=== PATIENT | male | born 1930 | race Caucasian/White ===

== ENCOUNTER 2017-05-28 14:28 | Emergency (ER) | payer OTHER ==
[~2017-05-28] VITALS: Wt 108.9 kg
[~2017-05-28 14:28] MED LIST: 'zithromax250 MG PO; ALDACTONE50 MG PO; AMLODIPINE BES1 TAB PO; AMLODIPINE BESY PO; AMLODIPINE10 MG PO; ARICEPT10 M1 PO; ARICEPT5 M1 PO; ASPIRIN ADULT L81 M2 PO; ATENOLOL25 MG PO; BAL B-501 EACH PO; BUSPAR5 MG PO; BUSPIRONE10 MG PO; COUMADIN5 MG PO; COZAAR100 MG PO; DELTASONE20 MG PO; DIABETA5 MG PO; DICLOFENAC SOD75 MG PO; DIOVAN160 MG PO; Duoneb 3ML 3 MG/3 ML INH; FINASTERIDE5 M1 PO; FINASTERIDE5 MG PO; FUROSEMIDE20 M1 PO; FUROSEMIDE40 MG PO; GLYBURIDE5 MG PO; HUMALOG100 U/ML SC; HYDR1000 IM; K-DUR20 MEQ PO; K-TAB10 MEQ PO; KEFLEX500 MG PO; KLOR-CON M1010 ME1 PO; LANTUS100 U/ML SC; LASIX40 MG PO; METFORMIN1000 MG PO; NAMENDA-5 PO; NORVASC5 MG PO; PAROXETINE40 MG PO; PAXIL40 M1 PO; POTASSIUM CHLO10 MEQ PO; PRAVACHOL80 MG PO; PRAVASTATIN SOD80 MG PO; RESTORIL15 MG PO; TENORMIN25 MG PO; VITAMIN D34000 UNIT PO; XANAX0.25 MG PO; XARE20MG PO; XARELTO10 PO; ZOVIRAX800 MG PO
== END 2017-05-28 15:49 | disposition home or self-care (01) ==
LOC: ED 14:28
DX: S49.91XA Unspecified injury of right shoulder and upper arm, initial encounter (principal); I10 Essential (primary) hypertension; E78.00 Pure hypercholesterolemia, unspecified; E11.9 Type 2 diabetes mellitus without complications; Z79.4 Long term (current) use of insulin; E44.0 Moderate protein-calorie malnutrition; Z86.73 Personal history of transient ischemic attack (TIA), and cerebral infarction without residual deficits; Z86.718 Personal history of other venous thrombosis and embolism; Z79.899 Other long term (current) drug therapy; W07.XXXA Fall from chair, initial encounter; Y93.89 Activity, other specified; Y92.008 Other place in unspecified non-institutional (private) residence as the place of occurrence of the external cause; Y99.8 Other external cause status